=== PATIENT | female | born 1985 | race Caucasian/White ===

== ENCOUNTER 2024-03-29 20:59 | Outpatient (CLI) | payer OTHER ==
--- NOTE | 2024-03-30 11:46 | Ultrasound Report ---
PROCEDURE: Renal (Retroperitoneal) INDICATIONS: [facility] HIST OF POLYCYSTIC KIDNEY TECHNIQUE: Real-time scanning was performed of the retroperitoneal organs, with image documentation. COMPARISON: None. FINDINGS: Kidneys: Kidneys are normal in size. Right kidney measures 13.4 cm long; left kidney measures 12.5 cm long. Right renal cortical thickness is 1.4 cm; left renal cortical thickness is 1.4 cm. Multiseptated cystic structure measuring 2.1 cm versus multiple adjoining cysts are seen in the right kidney. Several additional simple cysts are seen bilaterally; the largest one measuring 2.2 cm in the upper p ole left kidney. No hydronephrosis, or nephrolithiasis. Bladder: Pre-void bladder volume is 344 mL. Post-void residual is 4mL. Pre-void images demonstrate no intraluminal masses or stones. On pre-void images, bilateral ureteral jets are noted with color Doppler interrogation. (Of note, ureteral jets may not be detectable in up to 25% of cases due to in sufficient differences in specific gravity between ureteral and bladder urine). Miscellaneous: No free abdominal fluid. IMPRESSION: Multiseptated cystic structure in the right kidney; it is not definitely a simple cyst due to the pos sibility of multiple septations. If clinically indicated, CT with contrast may provide additional thelma gnostic benefit. Additional simple cysts seen elsewhere in the kidneys consistent with history of micky ycystic kidney disease Reviewed by: Sanket Melton MD on 03/30/2024 11:45 AM PDT Approved by: Sanket Melton MD on 03/30/2024 11:45 AM PDT Station ID: [id number]
== END 2024-03-29 21:00 | disposition home or self-care (01) ==
LOC: DI 20:59
PROVIDERS: ATTEND Family Medicine
DX: N28.1 Cyst of kidney, acquired (principal); Z82.71 Family history of polycystic kidney